=== PATIENT | male | born 1940 | race Asian ===

== ENCOUNTER 2017-11-16 15:15 | Emergency (ER) | payer OTHER, MEDICAID ==
[~2017-11-16] VITALS: Ht 160 cm; Wt 70.3 kg
[2017-11-16 15:15] VITALS: BP_SYST 137
--- NOTE | 2017-11-16 15:15 | NUR ---
Pt to bed 6, placed in gown for evaluation
--- NOTE | 2017-11-16 15:49 | NUR ---
Dr. Apodaca at bedside.
--- NOTE | 2017-11-16 15:50 | NUR ---
PT AAOx4, speaks Cantonese only, Pt's family translated at bedside. Pt complaining of right hip pain and RLL and foot numbness for approximately 3 months. Denies recent injury or trauma. 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 No redness or sign of trauma at indicated sight, Sx incision scar evident.
[2017-11-16] MEDS ORDERED: OLME20TA14 PO (15:56)
[2017-11-16] MEDS ORDERED: SIMV10TA2 PO (15:56)
[2017-11-16] MEDS ORDERED: TRAM50TA92 PO (15:56)
[2017-11-16] MEDS ORDERED: FINA5TAB3 PO (15:56)
[2017-11-16] MEDS ORDERED: OMEP20CA10 PO (15:56)
[2017-11-16] MEDS ORDERED: GABA-531 PO (15:56)
[2017-11-16] MEDS ORDERED: DOCU-144 PO (15:56)
[2017-11-16] MEDS ORDERED: [UNRECOGNIZED DRUG - OTHER] PO (15:56)
[2017-11-16] MEDS ORDERED: CLOP75TA2 PO (15:56)
[2017-11-16] MEDS ORDERED: MELO15TA13 PO (15:56)
[2017-11-16] MEDS ORDERED: ACET PO (15:56)
--- NOTE | 2017-11-16 15:56 | NUR ---
Medication reconciliation completed with information provided by family. Any prior medication reconciliation on file was reviewed and corrected.
[2017-11-16] MEDS ORDERED: MORPHINE 4 MG/ML INJ. SYRINGE IM ONE (16:00)
--- NOTE | 2017-11-16 16:00 | NUR ---
Pt refused morphine IM: risks and benefits explained. Morphine wasted with MICHELLE Ralph.
[2017-11-16 16:11] LABS: BILIRUBIN,URINE NEGATIVE (NEGATIVE); BLOOD, URINE 2+ (NEGATIVE); CLARITY/URINE CLEAR (CLEAR); COLOR,URINE YELLOW (YELLOW); GLUCOSE,URINE TRACE (NEGATIVE); KETONES,URINE NEGATIVE (NEGATIVE); LEUKOCYTE ESTERASE ,URINE NEGATIVE (NEGATIVE); NITRITE, URINE NEGATIVE (NEGATIVE); PROTEIN URINE NEGATIVE (NEGATIVE); UROBILINOGEN,URINE 0.2 (0.2-1.0)
[2017-11-16 16:17] LABS: BACTERIA,URINE FEW /HPF (None Seen); WBC,URINE 0-3 /HPF (0-3)
[2017-11-16 16:35] VITALS: BP_SYST 133
--- NOTE | 2017-11-16 16:35 | NUR ---
Patient and son given written and verbal discharge instructions and verbalizes understanding. ER MD discussed with patient and son the results and treatment provided. Patient in stable condition. ID arm band removed. Rx of norco given. Patient and son educated on pain management and to follow up with PMD. Pain Scale 3/10 tolerable. Opportunity for questions provided and answered.
--- NOTE | 2017-11-16 16:35 | NUR ---
Note undone in EDM - 11/16/17 at 1654 by ISAAC Patient given written and verbal discharge instructions and verbalizes understanding. ER discussed with patient the results and treatment provided. Patient in stable condition. ID arm band removed. Rx of [place] given. Patient educated on pain management and to follow up with PMD. Pain Scale 8/10 but refused order of morphine. opportunity for questions provided and answered through family member chemical pumper. Medication side effect fact sheet provided.
== END 2017-11-16 16:35 | disposition home or self-care (01) ==
LOC: SED 15:15
DX: M25.551 Pain in right hip (principal); R30.0 Dysuria; R03.0 Elevated blood-pressure reading, without diagnosis of hypertension; K21.9 Gastro-esophageal reflux disease without esophagitis; N40.0 Benign prostatic hyperplasia without lower urinary tract symptoms; Z79.899 Other long term (current) drug therapy
CPT/HCPCS: 81000; 99283; J2270